=== PATIENT | male | born 1995 | race Caucasian/White ===

== ENCOUNTER 2019-08-03 15:49 | Emergency (ER) | payer MEDICAID ==
--- NOTE | 2019-08-03 16:50 | EDM.PDOC ---
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 He did not get checked at that time. He is now having seizures. He had 4 of them today. Onset: Gradual Duration: Day(s): Location: Reports: Head Associated Symptoms: Reports: Seizure, Other (pt is having severe headaches. ) Headache Pain Score (Numeric/FACES): 10 - Related Data Allergies Allergy/AdvReac Type Severity Reaction Status Date / Time No Known Allergies Allergy Verified 08/03/19 16:08 Home Meds: Home Meds NK [No Known Home Meds] 08/03/19 [History] Past Medical History Neurological History: Reports: Seizure - Past Surgical History Musculoskeletal Surgical History: Reports: Other (See Below) Other Musculoskeletal Surgeries/Procedures:: hand fracture Social & Family History - Tobacco Use Smoking Status *Q: Never Smoker - Caffeine Use Caffeine Use: Reports: Soda - Recreational Drug Use Recreational Drug Use: Yes Drug Use in Last 12 Months: Yes Recreational Drug Type: Reports: [place] Recreational Drug Use Frequency: Weekly ED ROS GENERAL - Review of Systems Review Of Systems: See Below Constitutional: Reports: No Symptoms HEENT: Reports: No Symptoms Respiratory: Reports: No Symptoms Cardiovascular: Reports: No Symptoms Endocrine: Reports: No Symptoms GI/Abdominal: Reports: No Symptoms : Reports: No Symptoms Musculoskeletal: Reports: No Symptoms Skin: Reports: No Symptoms Neurological: Reports: Headache, Seizure ED EXAM, NEURO - Physical Exam Exam: See Below Text/Narrative:: pt arrived stating that he had 4 seizures today. He had severe headaches frequently. He had a head injury about 6 monthes ago when he fell and hit his head. He was not evaluated at that time. Exam Limited By: No Limitations General Appearance: Alert, Anxious, Mild Distress, Other (pupils are equal and react to lite. ) Ears: Normal TMs Nose: Normal Inspection Throat/Mouth: Normal Inspection Head Exam: Atraumatic Neck: Normal Inspection Respiratory/Chest: No Respiratory Distress Cardiovascular: Regular Rate, Rhythm GI/Abdominal: Soft, Non-Tender (Male) Exam: Deferred Rectal (Males) Exam: Deferred Neurological: Alert Course - Vital Signs Last Recorded V/S: Last Vital Signs Temp 36.1 C 08/03/19 16:19 Pulse 79 08/03/19 16:19 Resp 16 08/03/19 16:19 BP 146/94 H 08/03/19 16:19 Pulse Ox 97 08/03/19 16:19 - Orders/Labs/Meds Orders: Active Orders 24 hr Category Date Time Status COMPREHENSIVE METABOLIC PN,CMP [CHEM] Urgent Lab 08/03/19 16:23 Received Labs: Laboratory Tests 08/03/19 08/03/19 08/03/19 Range/Units 16:23 16:46 16:46 WBC 8.3 (4.5-11.0) K/uL RBC 5.26 (4.30-5.90) M/uL Hgb 15.6 H (12.0-15.0) g/dL Hct 47.1 (40.0-54.0) % MCV 90 (80-98) fL MCH 30 (27-31) pg MCHC 33 (32-36) % Plt Count 274 (150-400) K/uL Neut % (Auto) 55 (36-66) % Lymph % (Auto) 31 (24-44) % Glascock % (Auto) 12 H (2-6) % Eos % (Auto) 2 (2-4) % Baso % (Auto) 1 (0-1) % Urine Color Yellow (YELLOW) Urine Appearance Clear (CLEAR) Urine pH 5.5 (5.0-8.0) Ur Specific Becker >= 1.030 (1.008-1.030) Urine Protein Negative (NEGATIVE) mg/dL Urine Glucose (UA) Negative (NEGATIVE) mg/dL Urine Ketones Negative (NEGATIVE) mg/dL Urine Occult Blood Trace-intact H (NEGATIVE) Urine Nitrite Negative (NEGATIVE) Urine Bilirubin Negative (NEGATIVE) Urine Urobilinogen 0.2 (0.2-1.0) EU/dL Ur Leukocyte Esterase Negative (NEGATIVE) Urine RBC 0-5 (0-5) Urine WBC Not seen (0-5) Ur Epithelial Cells Rare Amorphous Sediment Not seen Urine Bacteria Rare Urine Mucus Few Urine Opiates Screen Negative (NEGATIVE) Ur Oxycodone Screen Negative (NEGATIVE) Urine Methadone Screen Negative (NEGATIVE) Ur Propoxyphene Screen Negative (NEGATIVE) Ur Barbiturates Screen Negative (NEGATIVE) Ur Tricyclics Screen Negative (NEGATIVE) Ur Phencyclidine Scrn Negative (NEGATIVE) Ur Amphetamine Screen Negative (NEGATIVE) U Methamphetamines Scrn Negative (NEGATIVE) Urine MDMA Screen Negative (NEGATIVE) U Benzodiazepines Scrn Negative (NEGATIVE) U Cocaine Metab Screen Negative (NEGATIVE) U Marijuana (THC) Screen Presumptive positive H (NEGATIVE) Departure - Departure Disposition: Home, Self-Care 01 Clinical Impression: Generalized convulsive epilepsy - Discharge Information Instructions: Seizure, Adult, [id number] Referrals: Raj Nicolas ENVIRONMENTAL EDUCATION SPECIALIST [Primary Care Provider] - Forms: ED Department Discharge Sepsis Event Note - Evaluation Sepsis Screening Result: No Definite Risk - Focused Exam Vital Signs: Vital Signs Temp Pulse Resp BP Pulse Ox 08/03/19 16:19 36.1 C 79 16 146/94 H 97 08/03/19 16:02 36.1 C 79 16 146/94 H 97 Date Exam was Performed: 08/03/19 Time Exam was Performed: 16:44 <Lee Hassan - Last Filed: 08/03/19 19:33> ED ROS GENERAL - Review of Systems Psychiatric: Reports: Anxiety ED EXAM, NEURO - Physical Exam Neurological: Normal Gait, No Motor/Sensory Deficits, Oriented x 3 Extremities: Normal Inspection Psychiatric: Anxious Skin Exam: Warm, Dry, No Rash Course - Vital Signs Text/Narrative:: Dr. Lui discussed this patient with me. I assumed care at [address] scan and laboratory studies had been returned so far are all negative. The patient has been here for 3-1/2 hours and wishes to go home. Pending is comprehensive profile and the lab is having trouble with their machine. I have told the patient we will call if there are any abnormalities in the laboratory studies. I have told him that he most likely needs follow-up with a neurologist but he should be seen by his primary care provider this coming week in order to make those arrangements. I filled out the referral form for the patient to be seen this week in clinic. I am not sending the patient home with any medication at this time. Jaron Hassan M.D. Departure - Departure Time of Disposition: 19:40 Condition: Good Sepsis Event Note - Focused Exam Date Exam was Performed: 08/03/19 Time Exam was Performed: 19:28
--- NOTE | 2019-08-03 17:03 | CRLCT ---
INDICATION: Headaches and seizure activity TECHNIQUE: CT Head without contrast. COMPARISON: None. FINDINGS: CSF spaces: Within normal limits for age. Brain parenchyma: The ji-white differentiation is normal. No sign of mass, hemorrhage, or midline shift. Skull base and calvarium: The visualized paranasal sinuses and mastoid air cells are clear. The visualized orbits are grossly unremarkable. No skull fractures. IMPRESSION: Unremarkable noncontrast head CT. Please note that all CT scans at this facility use dose modulation, iterative reconstruction, and/or weight-based dosing when appropriate to reduce radiation dose to as low as reasonably achievable. Dictated by: Calos Polanco MD @ 08/03/2019 17:01:52 (Electronically Signed)
== END 2019-08-03 19:39 | disposition home or self-care (01) ==
LOC: JP.ED 15:49
DX: G40.409 Other generalized epilepsy and epileptic syndromes, not intractable, without status epilepticus (principal)
CPT/HCPCS: 36415; 70450; 80053; 80305-QW; 81001; 85025; 99284-25

== ENCOUNTER 2020-12-02 20:07 | Emergency (ER) | payer MEDICAID ==
[2020-12-02] MEDS ORDERED: Dental Adhesive 1 Tube DENT ONE (20:29)
--- NOTE | 2020-12-02 20:39 | EDM.PDOC ---
ED HPI GENERAL MEDICAL PROBLEM - General Chief Complaint: Headache Stated Complaint: TOOTH CHIPPED UPPER JAW Time Seen by Provider: 12/02/20 20:25 Source of Information: Reports: Patient, RN - History of Present Illness INITIAL COMMENTS - FREE TEXT/NARRATIVE: Broken tooth upper #16 right side. Patient tooth broke earlier today when he was trying to clean around the tooth. He does have an appointment with his dentist for to have it faxed however it is now broken today and he will need temporary filling until he can be seen by the dentist. Patient states pain is so bad that it almost made him pass out and throw up from the pain. Onset: Today, Sudden Duration: Getting Worse Location: Reports: Other (Broken tooth upper right) Quality: Reports: Stabbing, Throbbing Improves with: Reports: None Worsens with: Reports: Cold Therapy, Eating, Heat Therapy Context: Reports: Trauma Associated Symptoms: Reports: Headaches, Loss of Appetite Oral/Mouth Pain Score (Numeric/FACES): 7 - Related Data Allergies Allergy/AdvReac Type Severity Reaction Status Date / Time No Known Allergies Allergy Verified 12/02/20 20:31 Home Meds: Home Meds NK [No Known Home Meds] 08/03/19 [History] Past Medical History Neurological History: Reports: Seizure - Past Surgical History Musculoskeletal Surgical History: Reports: Other (See Below) Other Musculoskeletal Surgeries/Procedures:: hand fracture Social & Family History - Caffeine Use Caffeine Use: Reports: Soda ED ROS GENERAL - Review of Systems Review Of Systems: See Below Constitutional: Reports: No Symptoms HEENT: Reports: Other (Upper right tooth pain broken tooth #16) Respiratory: Reports: No Symptoms Cardiovascular: Reports: No Symptoms - Physical Exam Exam: See Below Exam Limited By: No Limitations General Appearance: Alert, WD/WN, Moderate Distress Throat/Mouth: Normal Lips, Normal Gums, Normal Oropharynx, Normal Voice, No Airway Compromise, Other (Broken tooth #16 upper right). No: Normal Teeth Head Exam: Atraumatic Neck: Normal Inspection, Supple, Non-Tender Respiratory/Chest: No Respiratory Distress, Lungs Clear, Normal Breath Sounds Neuro Exam (Abbreviated): Alert, Oriented, CN II-XII Intact, Normal Cognition, Normal Gait Course - Vital Signs Last Recorded V/S: Last Vital Signs Temp 35.8 C L 12/02/20 20:29 Pulse 86 12/02/20 20:29 Resp 16 12/02/20 20:29 BP 129/89 12/02/20 20:29 Pulse Ox 97 12/02/20 20:29 - Orders/Labs/Meds Meds: Medications Discontinued Medications Generic Name Dose Route Start Last Admin Trade Name Solo PRN Reason Stop Dose Admin Denture Adhesive 1 applic 12/02/20 20:29 12/02/20 20:44 Dental Adhesive 1 Tube DENT 12/02/20 20:30 1 applic ONETIME ONE Administration Dental adhesive to cover right applied to tooth bed. Patient instructed this is a temporary fix. Must keep appointment with dentist. Will cover patient with antibiotic for infection. Take until sees dentist and provides additional direction Departure - Departure Time of Disposition: 21:01 Disposition: Home, Self-Care 01 Condition: Fair Clinical Impression: Broken tooth - Discharge Information Instructions: Tooth Injuries, [id number] Referrals: PCP,None [Primary Care Provider] - Forms: ED Department Discharge Additional Instructions: Allow temporary filling to adhere for atleast 2 hours prior to eating. Take antibiotic as prescribed. Follow up with [facility] . Sepsis Event Note (ED) - Evaluation Sepsis Screening Result: No Definite Risk - Focused Exam Vital Signs: Vital Signs Temp Pulse Resp BP Pulse Ox 12/02/20 20:29 35.8 C L 86 16 129/89 97 - Assessment/Plan Assessment:: broken tooth #16 Plan: Temporary filling applied to tooth. Pt instructed to keep dentist appt for Wednesday this week. Take Augmentin twice a day until seen by dentist and is provided further direction
== END 2020-12-02 21:01 | disposition home or self-care (01) ==
LOC: JP.ED 20:07
DX: S02.5XXA Fracture of tooth (traumatic), initial encounter for closed fracture (principal); W22.8XXA Striking against or struck by other objects, initial encounter
CPT/HCPCS: 99283; A9270

== ENCOUNTER 2021-03-03 18:45 | Emergency (ER) | payer MEDICAID | END 2021-03-03 20:00 | disposition home or self-care (01) | LOC: JP.ED 18:45 | DX: M25.571 Pain in right ankle and joints of right foot (principal); Z53.21 Procedure and treatment not carried out due to patient leaving prior to being seen by health care provider ==

== ENCOUNTER 2021-03-08 14:08 | Emergency (ER) | payer MEDICAID ==
--- NOTE | 2021-03-08 15:01 | EDM.PDOC ---
ED HPI GENERAL MEDICAL PROBLEM - General Chief Complaint: ENT Problem Stated Complaint: COVID SYMPTOMS Time Seen by Provider: 03/08/21 14:45 Source of Information: Reports: Patient, Old Records History Limitations: Reports: No Limitations - History of Present Illness INITIAL COMMENTS - FREE TEXT/NARRATIVE: 25 yo male here with runny nose and malaise for the past 5 days. Decided today he was having trouble breathing so came to the ER. Has not been vaccinated for Covid. Onset: Gradual Onset Date: 03/04/21 Duration: Day(s): (4-5), Getting Worse Location: Reports: Generalized Quality: Reports: Other (none) Severity: Mild Improves with: Reports: None Worsens with: Reports: Other (time) Context: Reports: Other (See HPI) Associated Symptoms: Reports: Cough, Other (rhinorrhea). Denies: Fever/Chills Treatments WANT AD CLERK: Reports: Other (see below) (none) Throat Pain Score (Numeric/FACES): 7 - Related Data Allergies Allergy/AdvReac Type Severity Reaction Status Date / Time No Known Allergies Allergy Verified 03/08/21 14:31 Home Meds: Home Meds NK [No Known Home Meds] 08/03/19 [History] Past Medical History HEENT History: Reports: Impaired Vision Cardiovascular History: Reports: High Cholesterol Gastrointestinal History: Reports: GERD Musculoskeletal History: Reports: Fracture Neurological History: Reports: Migraines, Seizure Psychiatric History: Reports: Depression, PTSD - Infectious Disease History Infectious Disease History: Reports: None - Past Surgical History Musculoskeletal Surgical History: Reports: Other (See Below) Other Musculoskeletal Surgeries/Procedures:: hand fracture Social & Family History - Tobacco Use Tobacco Use Status *Q: Never Tobacco User - Caffeine Use Caffeine Use: Reports: Coffee, Energy Drinks, Soda, Tea - Recreational Drug Use Recreational Drug Use: Yes Recreational Drug Type: Reports: Marijuana/Hashish Recreational Drug Use Frequency: Daily ED ROS ENT - Review of Systems Review Of Systems: See Below Constitutional: Denies: Fever, Chills HEENT: Reports: Rhinitis Respiratory: Reports: Shortness of Breath (at home, not now), Cough Cardiovascular: Reports: No Symptoms GI/Abdominal: Reports: No Symptoms : Reports: No Symptoms Musculoskeletal: Reports: No Symptoms Skin: Reports: No Symptoms ED EXAM, ENT - Physical Exam Exam: See Below Exam Limited By: No Limitations General Appearance: Alert, WD/WN, No Apparent Distress, Obese Eye Exam: Bilateral Eye: Normal Inspection Ears: Normal External Exam, Normal Canal, Hearing Grossly Normal, Normal TMs Nose: Clear Rhinorrhea, Other (congestion) Mouth/Throat: Normal Inspection, Normal Lips, Normal Oropharynx Head: Atraumatic, Normocephalic Neck: Normal Inspection Respiratory/Chest: No Respiratory Distress, Lungs Clear, Normal Breath Sounds, No Accessory Muscle Use Cardiovascular: Regular Rate, Rhythm, No Edema. No: Tachycardia GI/Abdominal: Normal Bowel Sounds, Soft, Non-Tender, No Distention Back: Normal Inspection. No: CVA Tenderness (R), CVA Tenderness (L) Extremities: Normal Inspection, Normal Range of Motion, Non-Tender, No Pedal Edema Neurological: Alert, Oriented, CN II-XII Intact, Normal Cognition, No Motor/Sensory Deficits Psychiatric: Normal Affect, Normal Mood Skin: Warm, Dry, Intact, Normal Color, No Rash Course - Vital Signs Last Recorded V/S: Last Vital Signs Temp 36.7 C 03/08/21 14:29 Pulse 107 H 03/08/21 14:29 Resp 18 03/08/21 14:29 BP 128/80 03/08/21 14:29 Pulse Ox 96 03/08/21 14:29 - Orders/Labs/Meds Labs: Laboratory Tests 03/08/21 Range/Units 14:31 SARS CoV-2 RNA Rapid ZACHERY Negative Departure - Departure Time of Disposition: 14:58 Disposition: Home, Self-Care 01 Condition: Good Clinical Impression: Viral URI - Discharge Information *PRESCRIPTION DRUG MONITORING PROGRAM REVIEWED*: Not Applicable *COPY OF PRESCRIPTION DRUG MONITORING REPORT IN PATIENT CYN: Not Applicable Instructions: Upper Respiratory Infection, Adult, [id number] Referrals: PCP,Unknown [Primary Care Provider] - Additional Instructions: Drink ample fluids. Rest. Wash hands often and wear a mask to reduce the risk of spread. Try Cold-Ease to shorten the duration of your cold. Recheck with your doctor as needed. Consider Covid and influenza vaccines. Sepsis Event Note (ED) - Evaluation Sepsis Screening Result: No Definite Risk - Focused Exam Vital Signs: Vital Signs Temp Pulse Resp BP Pulse Ox 03/08/21 14:29 36.7 C 107 H 18 128/80 96
== END 2021-03-08 15:06 | disposition home or self-care (01) ==
LOC: JP.ED 14:08
DX: J06.9 Acute upper respiratory infection, unspecified (principal); Z20.822 Contact with and (suspected) exposure to COVID-19
CPT/HCPCS: 99283; U0002

== ENCOUNTER 2021-06-04 17:13 | Emergency (ER) | payer MEDICAID ==
[2021-06-04 18:55] LABS: CORONAVIRUS COVID-19 NAA NEGATIVE (NEGATIVE)
== END 2021-06-04 19:16 | disposition home or self-care (01) ==
LOC: JP.ED 17:13
DX: R06.00 Dyspnea, unspecified (principal); Z20.822 Contact with and (suspected) exposure to COVID-19
CPT/HCPCS: 0241U; 99284

== ENCOUNTER 2022-09-24 17:47 | Emergency (ER) | payer MEDICAID | END 2022-09-24 19:24 | disposition home or self-care (01) | LOC: JP.ED 17:47 | DX: S63.502A Unspecified sprain of left wrist, initial encounter (principal); X50.1XXA Overexertion from prolonged static or awkward postures, initial encounter | CPT/HCPCS: 73110-LT; 73130-LT; 99283 ==